=== PATIENT | female | born 1965 | race Caucasian/White ===

== ENCOUNTER 2020-09-07 13:02 | Emergency (ER) | payer OTHER ==
--- NOTE | 2020-09-07 14:16 | ER Document Report ---
ED GI/ - General Chief Complaint: Abdominal Pain Stated Complaint: ABDOMINAL PAIN/FEVER Time Seen by Provider: 09/07/20 14:00 Notes: CHIEF COMPLAINT: Left lower quadrant pain since yesterday HPI: 55-year-old female with no personal history of ovarian cyst or diverticulitis but family history of both presenting with left lower quadrant pain that she woke up with yesterday has had some constipation since yesterday. No diarrhea no vomiting. No fever. No prior history of similar discomfort ROS: See HPI - all other systems were reviewed and are otherwise negative Constitutional: no fever Eyes: no drainage, no blurred vision ENT: no runny nose, no sore throat Cardiovascular: no chest pain Resp: no SOB, no cough GI: no vomiting, no diarrhea, positive abdominal pain : no dysuria Integumentary: no rash Allergy: no hives Musculoskeletal: no extremity pain or swelling Neurological: no numbness/tingling, no weakness MEDICATIONS: I agree with the patient medications as charted by the RN. ALLERGIES: I agree with the allergies as charted by the RN. PAST MEDICAL HISTORY/PAST SURGICAL HISTORY: Reviewed and agree as charted by RN. SOCIAL HISTORY: Reviewed and agree as charted by RN. FAMILY HISTORY: No significant familial comorbid conditions directly related to patient complaint EXAM: Reviewed vital signs as charted by RN. CONSTITUTIONAL: Alert and oriented and responds appropriately to questions. Well-appearing; well-nourished HEAD: Normocephalic; atraumatic EYES: PERRL; Conjunctivae clear, sclerae non-icteric ENT: normal nose; no rhinorrhea; moist mucous membranes; pharynx without lesions noted, no uvula edema or deviation, no tonsillar hypertrophy, phonation normal NECK: Supple without meningismus; non-tender; no cervical lymphadenopathy, no masses CARD: RRR; no murmurs, no clicks, no rubs, no gallops; symmetric distal pulses RESP: Normal chest excursion without splinting or tachypnea; breath sounds clear and equal bilaterally; no wheezes, no rhonchi, no rales, pulse oximetry 97% on room air not hypoxic ABD/GI: Obese, normal bowel sounds; non-distended; soft, moderate tenderness in the left lower quadrant left pelvis on palpation, no rebound, no guarding; no palpable organomegaly or masses. BACK: The back appears normal and is non-tender to palpation, there is no CVA tenderness EXT: Normal ROM in all joints; non-tender to palpation; no cyanosis, no effusions, no edema SKIN: Normal color for age and race; warm; dry; good turgor; no acute lesions noted NEURO: Moves all extremities equally; Motor and sensory function intact PSYCH: The patient's mood and manner are appropriate. Grooming and personal hygiene are appropriate. MDM: 55-year-old female left lower quadrant pain that she woke up with yesterday. Suspect diverticulitis or ovarian cyst. Will initially start with CT imaging given the patient's age and likelihood of diverticulitis. Patient states that her son was exposed to someone who was Covid positive in the last week and she would like a Covid test as well although she has no upper respiratory symptoms - Related Data Allergies/Adverse Reactions: shellfish derived Adverse Reaction (Intermediate, Verified 09/07/20 13:40) Home Medications: estrogen, vitamins Past Medical History - Social History Smoking Status: Current Some Day Smoker Family History: Reviewed & Not Pertinent Patient has homicidal ideation: No Physical Exam - Vital signs Vitals: Temp Pulse Resp BP Pulse Ox 99.9 F 109 H 18 142/94 H 96 09/07/20 13:08 09/07/20 13:08 09/07/20 13:08 09/07/20 13:08 09/07/20 13:08 Course - Re-evaluation Re-evalutation: 09/07/20 17:52 Patient noted to have mild sigmoid diverticulitis on CT without perforation or abscess will place on Cipro Flagyl pain medication refer to GI with return instructions - Vital Signs Vital signs: Temp Pulse Resp BP Pulse Ox 99.9 F 109 H 18 142/94 H 96 09/07/20 13:08 09/07/20 13:08 09/07/20 13:08 09/07/20 13:08 09/07/20 13:08 - Laboratory Result Diagrams: 09/07/20 14:26 09/07/20 14:26 Laboratory results interpreted by me: 09/07/20 09/07/20 09/07/20 14:26 14:26 14:26 [place] % (Auto) 13.8 H Sodium 135.4 L ALT 39 H Urine Protein 30 H Urine Ketones TRACE H Urine Blood MODERATE H Discharge - Discharge Clinical Impression: Sigmoid diverticulitis Condition: Stable Disposition: HOME, SELF-CARE Additional Instructions: It was noted on your CT scan today that you have diverticulitis of the colon which is an infection or inflammation of the colon. Take the antibiotics to treat this. Take the pain medications as prescribed. Do not drive if taking narcotics for pain. It is imperative that you follow-up in 2 to 3 weeks time with gastroenterology for colonoscopy for reevaluation. If you develop high fever or worsening or uncontrolled pain at home return for reevaluation Prescriptions: Ciprofloxacin HCl [Cipro 500 mg Tablet] 500 mg PO BID #20 tablet Metronidazole [Flagyl 500 mg Tablet] 500 mg PO TID #21 tablet Oxycodone HCl/Acetaminophen [Percocet 5-325 mg Tablet] 1 tab PO Q4H PRN #15 tab PRN Reason: Referrals: ALBERTO PATEL MD [ACTIVE STAFF] - Follow up as needed
[2020-09-07 14:54] LABS: ABSOLUTE LYMPHOCYTES (AUTO) 1.4 10^3/uL (0.5-4.7); ABSOLUTE MONOCYTES (AUTO) 1.2 10^3/uL (0.1-1.4); ABSOLUTE NEUT (AUTO) 6.1 10^3/uL (1.7-8.2); BASOPHILS % (AUTO) 0.2 % (0-2); EOSINOPHILS % (AUTO) 0.3 % (0-6); HEMATOCRIT 40.7 % (36.0-47.0); HEMOGLOBIN 13.8 g/dL (12.0-15.5); LYMPHOCYTES % (AUTO) 16.3 % (13-45); MEAN CORPUSCULAR HEMOGLOBIN 32.8 pg (27.0-33.4); MEAN CORPUSCULAR VOLUME 97 fl (80-97); MONOCYTES % (AUTO) 13.8 % (3-13); PLATELET COUNT 264 10^3/uL (150-450); RED BLOOD COUNT 4.21 10^6/uL (3.72-5.28); SEGMENTED NEUTROPHILS % (AUTO) 69.4 % (42-78); TOTAL CELLS COUNTED % (AUTO) 100 %; WHITE BLOOD COUNT 8.7 10^3/uL (4.0-10.5)
[2020-09-07 15:12] LABS: APPEARANCE,URINE CLOUDY; BILIRUBIN,URINE NEGATIVE (NEGATIVE); GLUCOSE, URINE NEGATIVE (NEGATIVE); KETONES,URINE TRACE mg/dL (NEGATIVE); LEUKOCYTE ESTERASE,URINE NEGATIVE (NEGATIVE); NITRITE,URINE NEGATIVE (NEGATIVE); PROTEIN,URINE 30 mg/dL (NEGATIVE); UROBILINOGEN,URINE NEGATIVE mg/dL (<2.0)
[2020-09-07 15:13] LABS: COLOR,URINE YELLOW
[2020-09-07 15:24] LABS: ALBUMIN 4.4 g/dL (3.5-5.0); ALKALINE PHOSPHATASE 94 U/L (38-126); ANION GAP 8 (5-19); ASPARTATE AMINO TRANSFERASE 28 U/L (14-36); BILIRUBIN,DIRECT 0.1 mg/dL (0.0-0.4); BILIRUBIN,TOTAL 1.2 mg/dL (0.2-1.3); BLOOD UREA NITROGEN 14 mg/dL (7-20); CALCIUM 9.8 mg/dL (8.4-10.2); CARBON DIOXIDE 26 mmol/L (22-30); CHLORIDE 101 mmol/L (98-107); GLUCOSE 97 mg/dL (75-110); POTASSIUM 4.1 mmol/L (3.6-5.0); TOTAL PROTEIN 7.8 g/dL (6.3-8.2)
--- NOTE | 2020-09-07 17:48 | RADIOLOGY REPORT (SQ) ---
EXAM DESCRIPTION: CT ABD/PELVIS WITH IV ORAL IMAGES COMPLETED DATE/TIME: 09/07/2020 5:24 pm REASON FOR STUDY: LLQ pain COMPARISON: None. TECHNIQUE: CT scan of the abdomen and pelvis performed using helical scanning technique with dynamic intravenous contrast injection. Oral contrast. Images reviewed with lung, soft tissue, and bone win dows. Reconstructed coronal and sagittal MPR images reviewed. Delayed images for evaluation of the ur inary system also acquired. All images stored on PACS. All CT scanners at this facility use dose modulation, iterative reconstruction, and/or weight based d osing when appropriate to reduce radiation dose to as low as reasonably achievable (ALARA). [facility]: Dose Right [facility]: CareDose [facility]: Dose Right [facility]: Teradose 4D [facility]: [place] CONTRAST TYPE AND DOSE: contrast/concentration: Isovue 350.00 mmol/ml; Total Contrast Delivered: 100 .0 ml; Total Saline Delivered: 65.0 ml RENAL FUNCTION: BUN 10 creatinine 0.62 RADIATION DOSE: CT Rad equipment meets quality standard of care and radiation dose reduction techniq ues were employed. CTDIvol: 16.5 - 20.1 mGy. DLP: 2137 mGy-cm.. LIMITATIONS: None. FINDINGS: LOWER CHEST: No significant findings. No nodules or infiltrates. LIVER: There are several small cysts. No solid masses. SPLEEN: Normal size. No focal lesions. PANCREAS: No masses. No significant calcifications. No adjacent inflammation or peripancreatic fluid collections. Pancreatic duct not dilated. GALLBLADDER: No identified stones by CT criteria. No inflammatory changes to suggest cholecystitis. ADRENAL GLANDS: No significant masses or asymmetry. RIGHT KIDNEY AND URETER: No solid masses. No significant calcifications. No hydronephrosis or hyd roureter. LEFT KIDNEY AND URETER: No solid masses. No significant calcifications. No hydronephrosis or hydr oureter. AORTA AND VESSELS: No aneurysm. No dissection. Renal arteries, SMA, celiac without stenosis. RETROPERITONEUM: No retroperitoneal adenopathy, hemorrhage or masses. BOWEL AND PERITONEAL CAVITY: Mild sigmoid diverticulosis with stranding in the fat around the upper s igmoid. There is no evidence of a perforated diverticulum. There is no free air. There is no absce ss. APPENDIX: Normal. PELVIS: No mass. No free fluid. Normal bladder. ABDOMINAL WALL: No masses. No hernias. BONES: No significant or acute findings. OTHER: No other significant finding. IMPRESSION: Mild sigmoid diverticulitis. There is no evidence of an abscess. There is no evidence of perforation. TECHNICAL DOCUMENTATION: JOB ID: [id number] Quality ID # [id number]: Final reports with documentation of one or more dose reduction techniques (e.g., Au tomated exposure control, adjustment of the mA and/or kV according to patient size, use of iterative reconstruction technique) 2010 [employer]- All Rights Reserved Reading location - IP/workstation name: [email or web address]
[2020-09-07] MEDS ORDERED: METRONIDAZOLE 500 MG TABLET PO ONE (17:52)
[2020-09-07] MEDS ORDERED: CIPROFLOXACIN HCL 500 MG TABLET PO ONE (17:52)
[2020-09-07 18:12] VITALS: BP 137/82
== END 2020-09-07 18:12 | disposition home or self-care (01) ==
LOC: ER 13:02
DX: K57.32 Diverticulitis of large intestine without perforation or abscess without bleeding (principal); R10.9 Unspecified abdominal pain; R50.9 Fever, unspecified; F17.200 Nicotine dependence, unspecified, uncomplicated; Z20.828 Contact with and (suspected) exposure to other viral communicable diseases
CPT/HCPCS: 99285; 36415; 85025; 87635; 80053; 81001; 74177; C9803

== ENCOUNTER 2020-10-25 08:48 | Day surgery (SDC) | payer OTHER ==
[~2020-10-25 08:48] MED LIST: PROPOFOL INJ 200 MG/20 ML VIAL IV ONE
[2020-10-25] MEDS ORDERED: PROPOFOL INJ 200 MG/20 ML VIAL IV ONE (09:48)
[2020-10-25 10:31] VITALS: BP 148/86
--- NOTE | 2020-10-25 11:59 | Operative Report ---
Operative Report DATE OF SURGERY: 10/25/20 Operative Report: The risk, benefits and alternatives of the procedure including the risk of bleeding, perforation requiring surgery have been explained to the patient in detail and informed consent has been obtained. Patient is taken back to the operating room and placed in left, lateral decubital position. Timeout was called. Propofol medication is administered. Rectal examination is done which did not reveal any masses, tears or fissures. An Olympus videoscope was introduced into the patient's rectum. Scope was then carefully advanced all the way to the cecum. The scope was then sequentially pulled back via the various segments of the colon including the ascending colon, back flexure, transverse colon, splenic flexure, descending colon and finally into the rectosigmoid portions of the colon. Retroflexion maneuver is performed. PREOPERATIVE DIAGNOSIS: Colorectal cancer screening POSTOPERATIVE DIAGNOSIS: Possible sessile polyp in the cecum status post biopsy. 3 sigmoid colon polyps removed via snare polypectomy, but only one of the 3 retrieved. The other 2 appeared to be consistent with tubular adenomas. OPERATION: Colonoscopy with snare polypectomy. Colonoscopy with biopsy SURGEON: ALBERTO PATEL ANESTHESIA: LMAC TISSUE REMOVED OR ALTERED: As noted above. COMPLICATIONS: None. ESTIMATED BLOOD LOSS: None. INTRAOPERATIVE FINDINGS: As noted above. PROCEDURE: Patient tolerated the procedure well. No immediate postprocedure complications are noted. Patient is discharged in good condition. Discharge date 10/25/2020. Discharge diet: Regular. Discharge activity: Regular. 2 to 3-week follow-up to discuss findings. Patient is instructed call the office or proceed to the emergency room should there be any further problems or questions. Wait on the pathology. 3-year surveillance colonoscopy.
== END 2020-10-25 10:11 | disposition home or self-care (01) ==
LOC: OROUT 08:48
PROVIDERS: ATTEND Internal Medicine Gastroenterology
DX: K63.5 Polyp of colon (principal); K57.30 Diverticulosis of large intestine without perforation or abscess without bleeding; Z87.19 Personal history of other diseases of the digestive system; F17.210 Nicotine dependence, cigarettes, uncomplicated
CPT/HCPCS: 45385; 88305 ×2; 00812; J2704; 812